=== PATIENT | female | born 1985 | race Caucasian/White ===

== ENCOUNTER 2020-11-29 16:02 | Emergency (ER) | payer OTHER, SELFPAY ==
--- NOTE | ~2020-11-29 | XR_ITS ---
EXAMINATION: XR chest 2V 11/29/2020 17:07 INDICATION: Chills, shortness of breath and cough PROCEDURE: 2 view chest COMPARISON: No prior studies for comparison. FINDINGS: The lungs are clear. The cardiomediastinal silhouette is within normal limits. There are no pleural effusions. There is no pneumothorax suspected. IMPRESSION: 1: NO ACUTE CARDIOPULMONARY DISEASE. Reviewed, dictated and finalized at location A.
[2020-11-29 16:18] VITALS: BP 166/95; PULSE 112; RESP 20; TEMP 36.5; O2SAT 98
--- NOTE | 2020-11-29 16:23 | ED.GENADULT ---
HPI - General Adult General Chief complaint: Upper Respiratory Infection Stated complaint: sinus inf Time Seen by Provider: 11/29/20 16:24 Source: patient Mode of arrival: ambulatory Limitations: no limitations History of Present Illness HPI narrative: 35-year-old female patient presents to the [facility] with complaints of cold symptoms for the past week. Patient states she had Covid in July and the right after her Covid diagnosis she was also diagnosed with influenza. Patient states she did get a flu shot this year. Patient does have a history of diabetes. Patient is an active smoker. Patient states that for the past week she has had a lot of congestion mostly on the right side of her nose head pressure to the right side as well as some throat pain to the right side. Patient states she has also had a cough and has been coughing up some yellow mucus. Patient does feel short of breath at times. Patient states she has had pneumonia before. Patient denies any abdominal pain, nausea, vomiting or diarrhea. Denies any fevers that she is aware of. Patient states that ever since her Covid diagnosis she has had Covid brain and states that time she does forget to take her diabetes medications. Patient states her sugars have been running high up in the 300s recently. Patient states she has been taking some [id number] Advil Cold and Sinus for her symptoms. Related Data Home Medications Medication Instructions Recorded Confirmed metformin 1,000 mg PO BID 11/29/20 11/29/20 sertraline 50 mg PO DAILY 11/29/20 11/29/20 Allergies Allergy/AdvReac Type Severity Reaction Status Date / Time No Known Allergies Allergy Unknown Verified 11/29/20 16:29 Review of Systems Review of Systems: Narrative: CONSTITUTIONAL: Denies fever, chills, or sweats. EYES: Denies visual changes, redness, or discharge. ENT: Positive rhinorrhea, congestion, sore throat, and right-sided otalgia. CARDIOVASCULAR: Denies chest pain, palpitations, or edema. RESPIRATORY: Positive productive cough with dyspnea. GASTROINTESTINAL: Denies abdominal pain, nausea, vomiting, or diarrhea. GENITOURINARY: Denies dysuria or hematuria. SKIN: Denies rash or itching. MUSCULOSKELETAL: Denies back pain, joint pain, or myalgia. NEUROLOGIC: Positive right-sided headache, denies numbness, or weakness. PSYCHIATRIC: Denies anxiety or depression. PMFSH Comments At the time of my signature I agree with nursing past medical history, surgical, social, and family history. There is no relevant family history pertinent to the presenting complaint. Exam Narrative: Exam Narrative: GENERAL: ill-appearing, well-nourished, and in no acute distress. HEAD: Normocephalic, atraumatic. EYES: PERRLA and EOMI. ENT: Nares with erythema and edema noted bilaterally, no rhinorrhea or epistaxis. Mucous membranes moist. Posterior pharynx with some erythema but no tonsil large mid couple little white spots and exudates noted on bilateral sides. Bilateral TMs are clear with no erythema or foreign bodies the canal. NECK: Supple. No lymphadenopathy CHEST: Clear to auscultation. No respiratory distress. Patient able talk in clear complete sentences. Patient does have some coughing noted during expanded exam especially when taking a deep breath HEART: Regular rate and rhythm. No murmur heard. Normal peripheral pulses. ABDOMEN: Soft, nontender, nondistended, normal active bowel sounds. EXTREMITIES: Normal range of motion. No edema. SKIN: Warm, dry, no rash. NEURO: No focal deficits. Alert and oriented x3. Course Reevaluation(s) Reevaluation #1: Reevaluated patient after her x-ray had resulted. Discussed with her that the x-ray is negative for any pneumonia. Discussed with patient that her rapid Covid test was negative and her strep test was negative. Discussed with her that her sugar is very high today however we did check her urine and there is no ketones present. Discussed with patient she needs to co
[2020-11-29 16:41] LABS: Glucose Point of Care 432 (65-105)
[2020-11-30 12:59] LABS: SARS-CoV-2 RNA PCR Negative
== END 2020-11-29 17:36 | disposition home or self-care (01) ==
PROVIDERS: Emergency Provider Nurse Practitioner Family; PCP Nurse Practitioner Family
DX: J01.10 Acute frontal sinusitis, unspecified (principal); E11.65 Type 2 diabetes mellitus with hyperglycemia; Z20.822 Contact with and (suspected) exposure to COVID-19; Z86.16 Personal history of COVID-19; F17.200 Nicotine dependence, unspecified, uncomplicated
CPT/HCPCS: 71046; 81003; 82948; 87081; 87426; 87880; 99213; C9803; G0463; U0003; U0005